=== PATIENT | female | born 1975 | race African-American/Black ===

== ENCOUNTER 2023-09-26 19:45 | Emergency (ER) | payer SELFPAY ==
[~2023-09-26] VITALS: Ht 175.3 cm; Wt 126.0 kg
[2023-09-26 19:55] VITALS: BP 162/90; PULSE 84; RESP 18; TEMP 98.4; O2SAT 99
[2023-09-26 20:21] LABS: BASOPHILS % 0.8 % (0.0-2.0); EOSINOPHILS % 3.2 % (0.0-5.0); HEMATOCRIT. 34.3 % (36.0-48.0); HEMOGLOBIN. 11.2 g/dL (12.0-16.0); MEAN CORPUSCULAR HEMOGLOBIN 29.8 pg (28.0-32.0); MEAN CORPUSCULAR HGB CONC 32.7 g/dL (31.0-37.0); MEAN PLATELET VOLUME 10.8 fl (7.4-10.4); MONOCYTES % 7.7 % (2.0-8.0); NEUTROPHILS % 53.3 % (40.0-76.0); PLATELET 180 x1000/uL (130-400); RED BLOOD CELL COUNT 3.77 mill/uL (4.2-5.4); RED CELL DISTRIBUTION WIDTH 14.8 % (11.6-14.6); WHITE BLOOD COUNT 8.5 x1000/uL (4.5-11.0)
[2023-09-26 20:38] LABS: HCG SCREEN NEGATIVE
[2023-09-26 20:40] LABS: ALANINE AMINOTRANSFERASE < 7 IU/L (10-49); ALBUMIN 4.2 g/dL (3.2-4.8); ASPARTATE AMINOTRANSFERASE 12 IU/L (<34); BILIRUBIN TOTAL 0.3 mg/dL (0.1-1.0); CALCIUM 8.5 mg/dL (8.7-10.4); CARBON DIOXIDE 29 mEq/L (21-32); CHLORIDE 108 mEq/L (98-107); CREATININE 0.9 mg/dL (0.6-1.0); GLUCOSE 96 mg/dL (70-105); POTASSIUM 3.9 mEq/L (3.5-5.1); PROTEIN TOTAL 7.9 g/dL (6.0-8.3); SODIUM 142 mEq/L (136-145); UREA NITROGEN BLOOD 17 mg/dL (9-23)
[2023-09-26 20:41] LABS: ETHANOL BLOOD < 10 mg/dL (<10)
[2023-09-26 22:20] LABS: CLARITY URINE CLEAR (CLEAR); COLOR URINE DARK YELLOW (YELLOW); GLUCOSE URINE NEGATIVE (NEGATIVE); KETONES URINE TRACE (NEGATIVE); LEUKOCYTE ESTERASE URINE NEGATIVE (NEGATIVE); NITRITE URINE NEGATIVE (NEGATIVE); OCCULT BLOOD URINE NEGATIVE (NEGATIVE); PH URINE 6.5 (4.5-8.0); PROTEIN URINE 1+ (NEGATIVE); SPECIFIC GRAVITY URINE 1.037 (1.005-1.030)
[2023-09-26 22:30] LABS: *AMPHETAMINES SCREEN URINE NEGATIVE (NEGATIVE); *BARBITURATES SCREEN URINE NEGATIVE (NEGATIVE); *BENZODIAZEPINES SCREEN URINE NEGATIVE (NEGATIVE); *COCAINE SCREEN URINE NEGATIVE (NEGATIVE); CANNABINOID URINE SCREEN PRESUMPTIVE POSITIVE (NEGATIVE); ECSTASY MDMA SCREEN URINE NEGATIVE (NEGATIVE); METHADONE URINE SCREEN Neg (NEGATIVE); OPIATES URINE SCREEN NEGATIVE (NEGATIVE); PHENCYCLIDINE URINE SCREEN NEGATIVE (NEGATIVE)
[2023-09-26 22:41] LABS: BACTERIA URINE 1+; MUCUS URINE 1+ /lpf (< = 2+); RBC URINE 0-2 /hpf (0-2); SQUAMOUS EPITHELIAL CELL URINE FEW /lpf (RARE/1+); WBC URINE 0-2 /hpf (0-2)
[2023-09-26] MEDS ORDERED: IBUP-2029 MT (22:57)
[2023-09-27] MEDS ORDERED: DICY-18 MT (10:42)
== END 2023-09-27 03:08 | disposition home or self-care (01) ==
LOC: ER 19:45
DX: R10.813 Right lower quadrant abdominal tenderness (principal); K80.20 Calculus of gallbladder without cholecystitis without obstruction; Z88.0 Allergy status to penicillin; Z88.2 Allergy status to sulfonamides
CPT/HCPCS: 36415; 74176; 80053; 80305; 80320; 81003; 84703; 85025; 99284; G0480

== ENCOUNTER 2023-09-27 05:17 | Emergency (ER) | payer MEDICAID ==
[~2023-09-27] VITALS: Ht 180.3 cm; Wt 104.0 kg
[~2023-09-27 05:17] MED LIST: IBUP-2029 MT
[2023-09-27 05:20] VITALS: BP 174/85; TEMP 98.7; O2SAT 99
[2023-09-27 05:25] VITALS: PULSE 80; RESP 20
[2023-09-27 06:05] LABS: BASOPHILS % 0.4 % (0.0-2.0); EOSINOPHILS % 4.6 % (0.0-5.0); HEMATOCRIT. 35.2 % (36.0-48.0); HEMOGLOBIN. 11.4 g/dL (12.0-16.0); LYMPHOCYTES % 43.5 % (20.0-50.0); MEAN CORPUSCULAR HEMOGLOBIN 29.8 pg (28.0-32.0); MEAN CORPUSCULAR HGB CONC 32.5 g/dL (31.0-37.0); MEAN CORPUSCULAR VOLUME 91.9 fL (81.0-99.0); MEAN PLATELET VOLUME 10.4 fl (7.4-10.4); MONOCYTES % 7.7 % (2.0-8.0); NEUTROPHILS % 43.8 % (40.0-76.0); PLATELET 182 x1000/uL (130-400); RED BLOOD CELL COUNT 3.83 mill/uL (4.2-5.4); WHITE BLOOD COUNT 7.3 x1000/uL (4.5-11.0)
[2023-09-27 06:27] LABS: ALANINE AMINOTRANSFERASE < 7 IU/L (10-49); ALBUMIN 4.3 g/dL (3.2-4.8); ASPARTATE AMINOTRANSFERASE 11 IU/L (<34); BILIRUBIN TOTAL 0.4 mg/dL (0.1-1.0); CALCIUM 8.8 mg/dL (8.7-10.4); CARBON DIOXIDE 28 mEq/L (21-32); CHLORIDE 108 mEq/L (98-107); CREATININE 0.8 mg/dL (0.6-1.0); GLUCOSE 97 mg/dL (70-105); INR 0.9; PROTHROMBIN TIME 10.6 sec (9.6-11.0); SODIUM 142 mEq/L (136-145); UREA NITROGEN BLOOD 19 mg/dL (9-23)
[2023-09-27 07:00] LABS: HCG SCREEN NEGATIVE
[2023-09-27 07:52] LABS: CLARITY URINE CLEAR (CLEAR); COLOR URINE YELLOW (YELLOW); GLUCOSE URINE NEGATIVE (NEGATIVE); KETONES URINE NEGATIVE (NEGATIVE); LEUKOCYTE ESTERASE URINE NEGATIVE (NEGATIVE); NITRITE URINE NEGATIVE (NEGATIVE); OCCULT BLOOD URINE NEGATIVE (NEGATIVE); PH URINE 6.5 (4.5-8.0); PROTEIN URINE TRACE (NEGATIVE); SPECIFIC GRAVITY URINE 1.034 (1.005-1.030)
[2023-09-27 08:11] LABS: MUCUS URINE TRACE /lpf (< = 2+); SQUAMOUS EPITHELIAL CELL URINE 1+ /lpf (RARE/1+)
[2023-09-27 08:13] LABS: BACTERIA URINE 1+; WBC URINE 0-2 /hpf (0-2)
[2023-09-27 08:14] LABS: RBC URINE 0-2 /hpf (0-2)
[2023-09-27] MEDS ORDERED: DICY-18 MT (10:42)
== END 2023-09-27 11:16 | disposition home or self-care (01) ==
LOC: ER 05:42
DX: R10.31 Right lower quadrant pain (principal); Z88.0 Allergy status to penicillin
CPT/HCPCS: 36415; 74176; 80053; 81003; 81025; 84703; 85025; 99284